=== PATIENT | male | born 1950 | race Native Hawaiian/Other Pacific Islander ===

== ENCOUNTER 2022-07-03 22:09 | Emergency (ER) | payer OTHER ==
[~2022-07-03] VITALS: Ht 177.8 cm; Wt 105.2 kg
[2022-07-03 22:42] LABS: PLATELET COUNT 193 K/uL (142-355)
[2022-07-03 22:51] LABS: POTASSIUM 3.6 mmol/L (3.6-5.2)
[2022-07-03 23:27] VITALS: BP 138/66; TEMP 97.6
[2022-07-04] MEDS ORDERED: AMLODIPINE BESYLATE PO (09:28)
[2022-07-04] MEDS ORDERED: ASPI325T40 PO (09:33)
[2022-07-04] MEDS ORDERED: LIPITOR40 MG PO (09:33)
[2022-07-04] MEDS ORDERED: ACID CONTROL20 MG PO (09:34)
[2022-07-04] MEDS ORDERED: CLOPIDOGREL75 MG PO (09:34)
[2022-07-04] MEDS ORDERED: KP FOLIC ACID1 MG PO (09:35)
[2022-07-04] MEDS ORDERED: METFORMIN HYD1000 MG PO (09:36)
[2022-07-04] MEDS ORDERED: HYDR25TA60 PO (09:36)
[2022-07-04] MEDS ORDERED: MULTIVITAMI1 PO (09:37)
[2022-07-04] MEDS ORDERED: METO25TA4 PO (09:37)
[2022-07-04] MEDS ORDERED: VITAMIN B-121000 MC2 PO (09:38)
[2022-07-04] MEDS ORDERED: THIA100T8 PO (09:38)
[2022-07-04] MEDS ORDERED: POTASSIUM CHLO10 ME1 PO (09:38)
[2022-07-04] MEDS ORDERED: VITAMIN D50000 UNIT PO (09:40)
[2022-07-04] MEDS ORDERED: ZINC GLUCON50 MG PO (09:41)
[2022-07-04] MEDS ORDERED: NOVOLOG100 UNIT/M SC (09:43)
[2022-07-04] MEDS ORDERED: TYLENOL325 MG PO (09:44)
[2022-07-04] MEDS ORDERED: IBU800 MG PO (09:45)
[2022-07-04] MEDS ORDERED: ARTIFICIAL TEARS1 % OPTH (09:45)
[2022-07-04] MEDS ORDERED: RULOX PO (09:46)
[2022-07-04] MEDS ORDERED: GLUCAGEN HYPOKIT1 MG IM (09:47)
[2022-07-04] MEDS ORDERED: ASCO500T18 PO (09:49)
== END 2022-07-03 23:27 | disposition still patient (30) ==
LOC: ED 22:09
PROVIDERS: Emergency Medicine Emergency Medical Services
DX: R46.89 Other symptoms and signs involving appearance and behavior (principal); Z11.52 Encounter for screening for COVID-19; Z04.6 Encounter for general psychiatric examination, requested by authority
CPT/HCPCS: 36415; 80053; 81002; 85027; 87635; 93005; 99283; U0003